=== PATIENT | male | born 2000 | race African-American/Black ===

== ENCOUNTER 2020-01-10 10:54 | Emergency (ER) | payer OTHER ==
[~2020-01-10] VITALS: Ht 180 cm; Wt 125.0 kg
[2020-01-10 10:55] VITALS: BP 142/93
--- OUTSIDE RECORDS SUMMARY | 2020-01-10 11:01 | XMS REPORT | Referral Summary ---
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 Phone Corky Kang PCP Encounter VC Date(s): 05/23/15 - 05/23/15 [facility] [id number] [facility] [place] [place] [address] [facility] Discharge Diagnosis: Pain in lower limb Discharge Disposition: 01-Home or Self Care Attending Physician: Corky Kang DO Vital Signs Most recent to 1 oldest [Reference Range]: Temperature Oral 36.6 degC [36.0-37.6 degC] (05/23/15 2:44 PM) Peripheral Pulse 62 bpm Rate [55-90 bpm] (05/23/15 2:44 PM) Respiratory Rate 16 br/min [14-20 br/min] (05/23/15 2:44 PM) Blood Pressure 116/62 mmHg [90-138/45-84 mmHg] (05/23/15 2:44 PM) Problem List Condition Effective Dates Status Health Status Informan t Obesity(Confirmed) Active patient Allergies, Adverse Reactions, Alerts No Known Medication Allergies Medications naproxen 375 mg oral tablet 375 mg 1 tabs, Oral, BID, # 60 tabs, 2 Refill(s), Pharmacy: [facility] , 1 tabs Oral BID Start Date: 05/23/15 Status: Ordered Vyvanse 40 mg oral capsule 40 mg 1 caps, Oral, qAM, 0 Refill(s) Start Date: 05/23/15 Status: Ordered Results No data available for this section Immunizations No data available for this section Procedures No data available for this section Social History Social History Type Response Smoking Status Never smoker Assessment and Plan Extracted from: Title: Lower Extremity Pain * Author: Corky Kang ate: 05/23/15 Impression and Plan Diagnosis Pain in lower limb (ICD9 729.5, Discharge, Medical). Patient Instructions: Counseled: Patient, Regarding diagnosis, Regarding medications, Verbalized understanding.
--- OUTSIDE RECORDS SUMMARY | 2020-01-10 11:01 | XMS REPORT | Referral Summary ---
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 Phone Corky Kang PCP Encounter VC Date(s): 03/09/15 - 03/09/15 [facility] [id number] [address] [place] [address] [facility] Discharge Disposition: 01-Home or Self Care Attending Physician: Corky Kang DO Vital Signs No data available for this section Problem List Condition Effective Dates Status Health Status Informan t Obesity(Confirmed) Active patient Allergies, Adverse Reactions, Alerts No Known Medication Allergies Medications naproxen 375 mg oral tablet 375 mg 1 tabs, Oral, BID, # 60 tabs, 2 Refill(s), Pharmacy: [facility] , 1 tabs Oral BID Start Date: 05/23/15 Status: Ordered Vyvanse 40 mg oral capsule 40 mg 1 caps, Oral, qAM, 0 Refill(s) Start Date: 05/23/15 Status: Ordered Results No data available for this section Immunizations No data available for this section Procedures No data available for this section Social History Social History Type Response Smoking Status Never smoker Assessment and Plan No data available for this section
--- NOTE | 2020-01-10 11:20 | ED Upper Extremity ---
General Chief Complaint: Upper Extremity Stated Complaint: SHOULDER INJURY Nursing Triage Note: INCARERATED PT AMBULATED TO ROOM 7 HAND AND FEET IN CUFFS, PT CO OF R SHOULDER PAIN AND DISLOCATION FROM DOING PUSHUPS LAST PM. PT STATES HAS HAD DISLOCATION IN PAST Nursing Sepsis Screen: No Definite Risk History of Present Illness Date Seen by Provider: Jan 10, 2020 Time Seen by Provider: 11:00 Initial Comments 19 year old -[place] male incarcerated reports that he was doing pushups last evening when he felt that his right shoulder dislocated. He's had a dislocation in the past, most recent being approximately 4 months ago, that reduced spontaneously. He's never had surgery on his right upper extremity, he is right-hand dominant. He continues to have pain in the right shoulder today. Pain/Injury Location: right shoulder Method of Injury: sports injury Allergies and Home Medications Allergies Coded Allergies: No Known Drug Allergies (Unverified , 01/10/20) Patient Home Medication List Home Medication List Reviewed: Yes Review of Systems Constitutional: no symptoms reported, see HPI Musculoskeletal: see HPI, joint pain (right shoulder) All Other Systems Reviewed Negative Unless Noted: Yes Past Ceqizkv-Pauedc-Hsbnzd Hx Past Med/Social Hx: Reviewed Nursing Past Med/Soc Hx Patient Social History Alcohol Use: Denies Use Recreational Drug Use: Yes (POT) Smoking Status: Former Smoker Type Used: Cigarettes Recent Foreign Travel: No Contact w/Someone Who Travel: No Recent Infectious Disease Expo: No Recent Hopitalizations: No Physical Abuse: No Sexual Abuse: No Seasonal Allergies Seasonal Allergies: No Past Medical History Surgeries: No Respiratory: Yes Asthma Cardiac: No Neurological: No Genitourinary: No Gastrointestinal: No Musculoskeletal: No Endocrine: No HEENT: No Cancer: No Psychosocial: No Integumentary: No Blood Disorders: No Physical Exam Vital Signs Vital Signs - First Documented 01/10/20 10:55 Temp 36.4 Pulse 60 Resp 18 B/P (MAP) 142/93 (109) Pulse Ox 100 Capillary Refill : Less Than 3 Seconds Height, Weight, BMI Height: '" Weight: lbs. oz. kg; 38.00 BMI Method: General Appearance: WD/WN, no apparent distress Cardiovascular: normal peripheral pulses, regular rate, rhythm Respiratory: chest non-tender, lungs clear, normal breath sounds Shoulder: normal inspection, limited ROM (trace limitation secondary to pain), pain, soft tissue tenderness (anterior right shoulder) Elbow/Forearm: normal inspection, non-tender, no evidence of injury, normal ROM, Right Wrist: Yes normal inspection, Yes non-tender, Yes no evidence of injury, Yes normal ROM Hand: normal inspection, non-tender, no evidence of injury, normal ROM, Right Neurologic/Tendon: normal sensation, normal motor functions, normal tendon functions Neurologic/Psychiatric: no motor/sensory deficits, alert, normal mood/affect, oriented x 3 Skin: normal color, warm/dry Progress/Results/Core Measures Results/Orders My Orders Orders - KATIE DOBSON Shoulder, Right, 3 Views (01/10/20 10:58) Vital Signs/I&O 01/10/20 10:55 Temp 36.4 Pulse 60 Resp 18 B/P (MAP) 142/93 (109) Pulse Ox 100 Blood Pressure Mean: 109 Diagnostic Imaging Diagonstic Imaging: Xray Plain Films/CT/US/NM/MRI: other (right shoulder) Comments NAME: SANDY YORK [facility] REC#: [id number] PT STATUS: REG ER : 2000 PHYSICIAN: KATIE DOBSON ADMIT DATE: 01/10/20/ER Draft Date of Exam:01/10/20 SHOULDER, RIGHT, 3 VIEWS INDICATION: Right shoulder pain. Dislocation from doing pushups last night. Previous dislocation. FINDINGS: Three views of the right shoulder demonstrate normal ossification. No fracture or dislocation is present. IMPRESSION: Negative right shoulder. Dictated on workstation # [id number] Dict: 01/10/20 1116 Trans: 01/10/20 [facility]8 [id number] Interpreted by: HIRA CRAVEN MD Electronically signed by: Reviewed: Reviewed by Me Departure Impression Primary Impression: Right shoulder pain Qualified Codes: M25.511 - Pain in right shoulder Disposition: 01 HOME, SELF-CARE Condition: Improved Departure-Patient Inst. Decision time for Depature: 11:15 Patient Instructions: Shoulder Dislocation (DC), Shoulder Pain (DC) Add. Discharge Instructions: Ice to right shoulder for 20 minutes every 2 hours. Alternate between Tylenol 650 mg of ibuprofen 600 mg every 4 hours for pain. Slowly progress activities with the right shoulder as tolerated. Return to the emergency department for new, urgent health care needs. All discharge instructions reviewed with patient and/or family. Voiced understanding. KATIE DOBSON Jan 10, 2020 11:19
== END 2020-01-10 11:22 ==
LOC: ER 10:56
DX: M25.511 Pain in right shoulder (principal); Z87.891 Personal history of nicotine dependence
CPT/HCPCS: 73030